=== PATIENT | male | born 1945 | race Caucasian/White ===

== ENCOUNTER 2016-09-23 10:00 | Emergency (ER) | payer MEDICARE, BC ==
[~2016-09-23] VITALS: Ht 177.8 cm; Wt 111.4 kg
[2016-09-23] MEDS ORDERED: ATOR80TA75 PO (10:23)
[2016-09-23] MEDS ORDERED: ASPI-496 PO (10:23)
[2016-09-23] MEDS ORDERED: METF10002 PO (10:23)
[2016-09-23] MEDS ORDERED: METO25TA35 PO (10:23)
[2016-09-23 12:43] VITALS: BP 148/83
== END 2016-09-23 12:46 | disposition home or self-care (01) ==
LOC: ED 11:51
DX: S46.122A Laceration of muscle, fascia and tendon of long head of biceps, left arm, initial encounter (principal); M79.662 Pain in left lower leg; E11.9 Type 2 diabetes mellitus without complications; X58.XXXA Exposure to other specified factors, initial encounter; Y93.89 Activity, other specified; Y92.89 Other specified places as the place of occurrence of the external cause; Y99.8 Other external cause status
CPT/HCPCS: 99284